=== PATIENT | male | born 1945 ===

== ENCOUNTER 2017-01-30 17:01 | Inpatient (IN) | payer MEDICARE, MEDICAID ==
[2017-01-30] MEDS ORDERED: Iohexol 240 (50 ml) PO ONE (17:48)
[2017-01-30 18:40] LABS: BASO # 0.2 K/uL (0.0-0.2); BASO % 0.8 % (0.0-2.0); EOS # 0.1 K/uL (0.0-0.7); EOS % 0.4 % (0.0-4.0); HEMATOCRIT 41.2 % (35.0-51.0); LYMPH # 2.6 K/uL (1.0-4.3); LYMPH % 13.7 % (20.0-40.0); MEAN CELL VOLUME 90.2 fl (80.0-94.0); MEAN CORPUSCULAR HEMOGLOBIN 29.1 pg (27.0-31.0); MEAN CORPUSCULAR HGB CONC 32.3 g/dL (33.0-37.0); MEAN PLATELET VOLUME 9.4 fl (7.2-11.7); MONO # 1.6 K/uL (0.0-0.8); MONO % 8.4 % (0.0-10.0); NEUT # 14.4 K/uL (1.8-7.0); NEUT % 76.7 % (50.0-75.0); RED CELL DISTRIBUTION WIDTH 12.6 % (11.5-14.5); WHITE BLOOD COUNT 18.8 K/uL (4.8-10.8)
[2017-01-30 18:55] LABS: ALKALINE PHOSPHATASE 144 U/L (38-126); ALT/SGPT 23 U/L (21-72); AMYLASE 57 U/L (30-110); AST/SGOT 14 U/L (17-59); BILIRUBIN,TOTAL 0.7 mg/dl (0.2-1.3); BLOOD UREA NITROGEN 20 mg/dl (9-20); CALCIUM 9.3 mg/dL (8.4-10.2); CARBON DIOXIDE 26 mmol/L (22-30); CHLORIDE 100 mmol/L (98-107); GFR AFRICAN-AMERICAN > 60; GLUCOSE,RANDOM 172 mg/dL (75-110); LIPASE 43 U/L (23-300); POTASSIUM 4.8 MMOL/L (3.6-5.0); SODIUM 133 mmol/l (132-148); TOTAL PROTEIN 7.2 G/DL (6.3-8.2)
[2017-01-30] MEDS ORDERED: Iohexol 240 (50 ml) ONE (19:08)
--- NOTE | 2017-01-30 20:02 | ED PDOC ---
HPI:Nausea, Vomiting, Diarrhea <Kay Cartwright - Last Filed: 01/30/17 23:10> Chief Complaint (Provider): Nausea History Per: Patient, EMS History/Exam Limitations: no limitations Onset/Duration Of Symptoms: Hrs (today) Current Symptoms Are (Timing): Still Present Have you had recent travel within the past 21 days to any of the following countries: [place], [place], [place] or [place]?: No Associated Symptoms: denies: Fever, Chills, Vomiting, Diarrhea, Chest Pain (no shortness of breath) Additional Complaint(s): Jesse Robles is a 71 year old male, with a past medical history of HTN, hypercholesterolemia, type II diabetes, dementia and b/l BKA, who presents to the ED on 01/30/17 for the evaluation of moderate nausea that he has experienced over the course of the day today. Denies any additional complaints, though patient is a notably poor historian. PMD: none <Yaya Moura - Last Filed: 01/31/17 13:30> Time Seen by Provider: 01/30/17 17:33 Chief Complaint (Nursing): Lower Extremity Problem/Injury Past Medical History Vital Signs: Last Vital Signs Temp 98.3 F 01/30/17 17:07 Pulse 78 01/30/17 17:07 Resp 20 01/30/17 17:07 BP 155/48 H 01/30/17 17:07 Pulse Ox 98 01/30/17 23:09 <Kay Cartwright - Last Filed: 01/30/17 23:10> Reviewed: Historical Data, Nursing Documentation, Vital Signs Vital Signs: Last Vital Signs Temp 98.3 F 01/30/17 17:07 Pulse 78 01/30/17 17:07 Resp 20 01/30/17 17:07 BP 155/48 H 01/30/17 17:07 Pulse Ox 98 01/30/17 17:07 - Medical History PMH: Arthritis, Dementia, Diabetes (type II), HTN, Hypercholesterolemia Denies: HIV, Chronic Kidney Disease Other PMH: glaucoma (right eye) - Surgical History Other surgeries: b/l BKA - Family History Family History: States: Unknown Family Hx <Yaya Moura - Last Filed: 01/31/17 13:30> - Home Medications Home Medications: Ambulatory Orders Medication Instructions Recorded Losartan/Hydrochlorothiazide 1 tab PO DAILY PRN 11/03/15 [Losartan-Hctz 50-12.5 mg Tab] Oxycodone HCl/Acetaminophen 1 tab PO Q6 PRN 11/03/15 [Percocet 5-325 mg Tablet] ALPRAZolam [Xanax] 0.25 mg PO TID PRN 11/14/16 Azelastine HCl 1 spray KAYKAY BID PRN 11/14/16 Fluocinonide 0.05% Cream [Lidex 1 appl TOP BID 11/14/16 0.05% Cream] Insulin Lispro [humALOG] 2 - 8 unit SC ACTID 11/14/16 Memantine [Namenda] 5 mg PO BID 11/14/16 Pravastatin Sodium [Pravachol] 40 mg PO HS 11/14/16 - Allergies Allergies/Adverse Reactions: Allergies Allergy/AdvReac Type Severity Reaction Status Date / Time No Known Allergies Allergy Verified 01/30/17 17:06 Review of Systems Constitutional: Negative for: Fever Gastrointestinal: Positive for: Nausea. Negative for: Vomiting, Abdominal Pain , Diarrhea <Yaya Moura - Last Filed: 01/31/17 13:30> Physical Exam - Reviewed Nursing Documentation Reviewed: Yes Vital Signs Reviewed: Yes - Physical Exam Appears: Positive for: Non-toxic, No Acute Distress Head Exam: Positive for: ATRAUMATIC, NORMOCEPHALIC Skin: Positive for: Normal Color, Warm, Dry Eye Exam: Negative for: Normal appearance (abnormal right eye (chronic)) Neck: Positive for: Normal, Painless ROM, Supple Cardiovascular/Chest: Positive for: Regular Rate, Rhythm, Chest Non Tender. Negative for: Murmur Respiratory: Positive for: Normal Breath Sounds. Negative for: Respiratory Distress Gastrointestinal/Abdominal: Positive for: Tenderness (winces upon palpation), Guarding (voluntary to right abdomen w/rigidity) Back: Positive for: Other (redness noted to sacrum but no evidence of ulcer) Extremity: Positive for: Other (b/l BKA) Neurologic/Psych: Positive for: Alert <Yaya Moura - Last Filed: 01/31/17 13:30> - Laboratory Results Result Diagrams: 01/30/17 18:25 01/30/17 18:25 <Kay Cartwright Last Filed: 01/30/17 23:10> - Laboratory Results Result Diagrams: 01/31/17 07:30 01/31/17 07:30 - ECG O2 Sat by Pulse Oximetry: 98 (RA) Pulse Ox Interpretation: Normal <Yaya Moura - Last Filed: 01/31/17 13:30> Medical Decision Making Medical Decision Makin:33 Initial Impression: nausea, abdominal tenderness w/rigidity and guarding Initial Plan: * EKG * CT A/P w/PO and IV contrast * CXR * Labs * Troponin I * Ammonia * Amylase * Lipase * Lactic Acid * POC * Urinalysis * Urine C&S * Zofran 4mg IVP * Reevaluation 19:57 Patient will be placed into ED Observation secondary to time-extensive workup. See Obs note for further updates. Scribe Attestation: Documented by Savi Lafleur, acting as a scribe for Yaya Moura PA-C. Provider Scribe Attestation: All medical record entries made by the Scribe were at my direction and personally dictated by me. I have reviewed the chart and agree that the record accurately reflects my personal performance of the history, physical exam, medical decision making, and the department course for this patient. I have also personally directed, reviewed, and agree with the discharge instructions and disposition. <Yaya Moura - Last Filed: 01/31/17 13:30> ED OBSERVATION Date of observation admission: 01/30/17 Time of observation admission: 19:57 - Observation admission statement Patient is being placed in observation because:: Time-extensive ED workup. - Goals of Observation Goals of observation are:: Results of ED workup. - Progress Note Progress Note: 01/30/17 20:00 Patient will be endorsed over to Kay Cartwright PA-C pending results of workup, reevaluation and final disposition. Condition fair. <Yaya Moura - Last Filed: 01/31/17 13:30> Disposition <Kay Cartwright - Last Filed: 01/30/17 23:10> - Patient ED Disposition Is Patient to be Admitted: Transfer of Care - Disposition Disposition: Transfer of Care Disposition Time: 20:00 Patient Signed Over To: Kay Cartwright Handoff Comments: pending CT scan, UA and final disposition <Yaya Moura - Last Filed: 01/31/17 13:30> - Clinical Impression Clinical Impression: Abdominal pain - Disposition Condition: STABLE
--- NOTE | 2017-01-30 20:14 | ED PDOC ---
- Laboratory Results Result Diagrams: 01/30/17 18:25 01/30/17 18:25 - ECG O2 Sat by Pulse Oximetry: 98 Medical Decision Making Medical Decision Making: Case endorsed to insurance underwriter sales from [employer] Moura at 20:00 pending diagnostic review and re-eval. Pt scheduled for CT at 21:30 HPI reviewed: Jesse Robles is a 71 year old male, with a past medical history of HTN, hypercholesterolemia, type II diabetes, dementia and b/l BKA, who presents to the ED on 01/30/17 for the evaluation of moderate nausea that he has experienced over the course of the day today. Denies any additional complaints, though patient is a notably poor historian. PMD: none clinical team manager: BP: 114/60 P 88 POX:97% on RA WBC 18.8 23:00 CT results pending. Pt asleep in bed in NAD. CT resulted: FINDINGS: Bilateral scarring/atelectasis. The liver, spleen and left adrenal gland demonstrate no acute abnormalities. Question subcentimeter hypoattenuating lesion in the tail of pancreas, unchanged in appearance from prior study. 14 mm right adrenal gland nodule again noted. No hydronephrosis. Pelvic right kidney. Hypoattenuating lesions in the kidneys. The largest on the left measures 14 mm. Nonspecific perinephric stranding. Notable atherosclerosis. Small hiatal hernia. The small and large bowel as visualized demonstrate no evidence of obstruction or clear focus of inflammation. Colonic diverticula. The left colon is collapsed , limiting its evaluation. Areas of apparent bowel wall prominence appear to be due to inadequate distention. Some retained fecal material in the colon. Degenerative changes. Vertebral body height loss involving superior endplate of T9. IMPRESSION: No definitive acute CT finding to correspond to reported history. Urine specimen not produced thus far. Cath ordered. 23:30: Pt complaining of pain, Pt's at bedside and reports Pt usually takes percocet PO before bed for chronic leg pain 1 tab ordered UA resulted (+) for UTI. IV Rocephin ordered. Ed MD, Dr. Nuñez, aware. Pts reports that his PMD is new, out of [place]. Pt admitted to Dr. Antunez's service. Disposition - Clinical Impression Clinical Impression: UTI (urinary tract infection), SIRS (systemic inflammatory response syndrome) - POA Present On Arrival: None - Disposition Disposition: Admitted as In-Patient Disposition Time: 23:55 Condition: STABLE
[2017-01-30] MEDS ORDERED: Sodium Chloride 0.9% 50 ML IV ONE (22:25)
[2017-01-30] MEDS ORDERED: Iohexol 300 100 ML IJ ONE (22:25)
--- NOTE | 2017-01-30 23:17 | CT ---
EXAM: CT Abdomen and Pelvis With Intravenous Contrast. CLINICAL HISTORY: 71 years old, male; Pain; Abdominal pain; Generalized; Additional info: Abdominal pain, right TECHNIQUE: Axial computed tomography images of the abdomen and pelvis with intravenous contrast. This CT exam was performed using one or more of the following dose reduction techniques: automated exposure control, adjustment of the mA and/or kV according to patient size, and/or use of iterative reconstruction technique. Coronal and sagittal reformatted images were created and reviewed. CONTRAST: 90 mL of [id number] administered intravenously. COMPARISON: CT - ABD PELVIS PO IV CONTRAST 11/03/2015 10:06:59 PM FINDINGS: Bilateral scarring/atelectasis. The liver, spleen and left adrenal gland demonstrate no acute abnormalities. Question subcentimeter hypoattenuating lesion in the tail of pancreas, unchanged in appearance from prior study. 14 mm right adrenal gland nodule again noted. No hydronephrosis. Pelvic right kidney. Hypoattenuating lesions in the kidneys. The largest on the left measures 14 mm. Nonspecific perinephric stranding. Notable atherosclerosis. Small hiatal hernia. The small and large bowel as visualized demonstrate no evidence of obstruction or clear focus of inflammation. Colonic diverticula. The left colon is collapsed, limiting its evaluation. Areas of apparent bowel wall prominence appear to be due to inadequate distention. Some retained fecal material in the colon. Degenerative changes. Vertebral body height loss involving superior endplate of T9. IMPRESSION: No definitive acute CT finding to correspond to reported history. Please see additional details/findings as above. Correlate clinically. Followup as warranted.
[2017-01-30] MEDS ORDERED: Oxycodone/Acetaminophen 5/325 mg Tab PO STA (23:29)
[2017-01-30 23:40] LABS: RBC URINE 23 /hpf (0-3); URINE BACTERIA OCC (<OCC); URINE BILIRUBIN NEGATIVE (NEGATIVE); URINE BLOOD SMALL (NEGATIVE); URINE COLOR YELLOW (YELLOW); URINE GLUCOSE (UA) NEG (Normal); URINE KETONE NEGATIVE (NEGATIVE); URINE LEUKOCYTE ESTERASE LARGE Leu/uL (Negative); URINE PROTEIN 30 mg/dL (NEGATIVE); URINE UROBILINOGEN 0.2-1.0 mg/dL (0.2-1.0); WBC CLUMPS FEW /hpf; WBC URINE 649 /hpf (0-5)
[2017-01-30] MEDS ORDERED: cefTRIAXone (Rocephin) 1 gm Inj ONE (23:49)
[2017-01-30] MEDS ORDERED: Oxycodone/Acetaminophen 5/325 mg Tab ONE (23:49)
[2017-01-31] MEDS ORDERED: Sodium Chloride 0.9% 1,000 ML IV STA (01:04)
[2017-01-31] MEDS ORDERED: Glucagon Recombinant 1 mg Inj IM PRN (01:05)
[2017-01-31] MEDS ORDERED: Dextrose 50% SYRINGE Inj (50 ml) IV PRN (01:05)
[2017-01-31] MEDS: Insulin Regular 100 units/ml SC SCH ×4 (07:10→21:36)
[2017-01-31 07:58] LABS: ALKALINE PHOSPHATASE 138 U/L (38-126); ALT/SGPT 25 U/L (21-72); AST/SGOT 14 U/L (17-59); BILIRUBIN,TOTAL 0.7 mg/dl (0.2-1.3); BLOOD UREA NITROGEN 16 mg/dl (9-20); CALCIUM 9.1 mg/dL (8.4-10.2); CARBON DIOXIDE 26 mmol/L (22-30); CHLORIDE 101 mmol/L (98-107); CHOLESTEROL 139 mg/dL (0-199); GFR AFRICAN-AMERICAN > 60; GLUCOSE,RANDOM 112 mg/dL (75-110); POTASSIUM 4.3 MMOL/L (3.6-5.0); SODIUM 135 mmol/l (132-148); TOTAL PROTEIN 7.1 G/DL (6.3-8.2)
[2017-01-31 08:01] LABS: HEMATOCRIT 39.1 % (35.0-51.0); MEAN CELL VOLUME 91.1 fl (80.0-94.0); MEAN CORPUSCULAR HEMOGLOBIN 29.6 pg (27.0-31.0); MEAN CORPUSCULAR HGB CONC 32.5 g/dL (33.0-37.0); RED CELL DISTRIBUTION WIDTH 12.6 % (11.5-14.5); WHITE BLOOD COUNT 16.5 K/uL (4.8-10.8)
[2017-01-31 08:17] LABS: T4 8.43 ug/dl (5.5-11.0)
[2017-01-31] MEDS: Oxycodone/Acetaminophen 5/325 mg Tab PO PRN (08:42)
[2017-01-31 08:47] LABS: PARTIAL THROMBOPLASTIN TIME 31.1 SECONDS (23.3-32.5)
[2017-01-31] MEDS ORDERED: AZELASTINE HCL NAS PRN (09:00)
[2017-01-31] MEDS ORDERED: Enoxaparin 40 mg Syringe SC SCH (09:00)
--- NOTE | 2017-01-31 10:17 | HP ---
CHIEF COMPLAINT: Feeling nauseous. HISTORY OF PRESENT ILLNESS: This is a 71-year-old male, known case of hypertension, elevated cholest [place], peripheral vascular disease leading to bilateral above-knee amputation, diabetes, dementia, was feeling nauseous the whole day so the patient was brought to Emergency Room where the patient was fo und to have urinary tract infection and was admitted for further management. The patient is not a go od historian due to his general medical condition. REVIEW OF SYSTEMS: He does not reliably available from this patient. PAST MEDICAL HISTORY: Significant for diabetes, hypertension, advanced dementia, elevated cholestero l, status post bilateral amputation. PAST SURGICAL HISTORY: Positive for bilateral amputation. PERSONAL HISTORY: The patient is currently a nonsmoker, nondrinker, no substance abuse. MEDICATIONS: The patient is on multiple medications, which includes losartan, hydrochlorothiazide, P ercocet, Xanax, hydralazine, insulin, memantine and ____. ALLERGIES: The patient is not allergic to any medication. FAMILY HISTORY: Noncontributory. PHYSICAL EXAMINATION: GENERAL: Well-built, well-nourished demented elderly male in no acute distress. VITAL SIGNS: Temperature 98.4, pulse 67, respiration 19, blood pressure 142/67, saturation 94%. HEENT: Pupils reacting to light. No nystagmus. Normocephalic, atraumatic skull. NECK: No JVD, no thyromegaly, no lymphadenopathy. HEART: S1, S2, irregular, irregular. No significant murmur, gallop or rub is heard. LUNGS: Shows good bilateral air entry. No rales or rhonchi. ABDOMEN: Soft, nontender, no organomegaly, no fluid. Bowel sounds are plus. EXTREMITIES: The patient is status post bilateral above knee amputation. No sign of acute complicat ion. CENTRAL NERVOUS SYSTEM: The patient is demented, moves all extremities. Total SWATCH FOLDER exam is not possi ble due to patient's general medical condition. DIAGNOSTIC DATA: Available diagnostic data reviewed. WBC 18.8, hemoglobin 13.3, hematocrit 41.2, pl atelets 245. Sodium 133, potassium 4.8, chloride 100, bicarbonate 26. Accu-Cheks are 163, 104, 172. SMA-12 is unremarkable. Urinalysis shows large, leukocyte esterase, multiple WBC and bacteria. Ch est x-ray is clear. EKG shows atrial fibrillation with controlled ventricular rate. ADMITTING IMPRESSION: Urinary tract infection, atrial fibrillation with controlled ventricular rate, advanced dementia, hypertension, type 2 diabetes with hyperglycemia, elevated cholesterol, periphera l vascular disease, status post bilateral amputation. PLAN: As ordered. Case and plan discussed with patient and the patient's family at bedside at [facility]. Jean Pierre Antunez MD cc: [id number] TT: 01/31/2017 10:15:57 jn
[2017-01-31 10:26] LABS: THYROID STIMULATING HORMONE 0.97 mIU/ML (0.46-4.68)
[2017-01-31] MEDS: HCTZ/Losartan 12.5/50 Tab PO SCH (10:50)
--- NOTE | 2017-01-31 10:52 | RAD ---
PROCEDURE: CHEST RADIOGRAPH, 1 VIEW HISTORY: abdominal pain COMPARISON: 11/14/2016 FINDINGS: LUNGS: Clear. Trachea is midline. PLEURA: No pneumothorax or pleural fluid seen. CARDIOVASCULAR: Normal. There is stable mild atherosclerotic change of the aorta with uncoiling. No aneurysmal dilatation of the aorta is suspected. OSSEOUS STRUCTURES: No significant abnormalities. VISUALIZED UPPER ABDOMEN: Normal. OTHER FINDINGS: None. IMPRESSION: No active disease.
[2017-01-31] MEDS: Enoxaparin 80 mg Syringe SC SCH ×2 (12:14→20:13)
--- NOTE | 2017-01-31 13:45 | CP.PCM.CON ---
History of Present Illness - History of Present Illness History of Present Illness: I was asked to see patient by Dr. Antunez. Patient is a 71 year old male with a history of HTN, PAD (s/p L BKA, R AKA), who presents with fatigue lethargy. Patient was noted to have recurrent UTI. The history is obtained from the patient's as the patient is a poor historian. He was noted to have itrregularity on the EKG. There is no previous cardiac history. Review of Systems - Review of Systems Systems not reviewed;Unavailable: Altered Mental Status Past Patient History - Past Medical History & Family History Past Medical History?: Yes - Past Social History Smoking Status: Current Some Days Smoker - CARDIAC Hx Hypercholesterolemia: Yes Hx Hypertension: Yes - PULMONARY Hx Respiratory Disorders: No - NEUROLOGICAL Hx Dementia: Yes - HEENT Hx HEENT Problems: Yes - RENAL Hx Chronic Kidney Disease: No - ENDOCRINE/METABOLIC Hx Endocrine Disorders: Yes - HEMATOLOGICAL/ONCOLOGICAL Hx Human Immunodeficiency Virus (HIV): No - INTEGUMENTARY Hx Dermatological Problems: No - MUSCULOSKELETAL/RHEUMATOLOGICAL Hx Arthritis: Yes - GASTROINTESTINAL Hx Gastrointestinal Disorders: No - GENITOURINARY/GYNECOLOGICAL Hx Genitourinary Disorders: No - PSYCHIATRIC Hx Psychophysiologic Disorder: No - SURGICAL HISTORY Hx Surgeries: Yes Hx Amputation: Yes (Left BKA, Right AKA) - ANESTHESIA Hx Anesthesia: Yes Hx Anesthesia Reactions: No Hx Malignant Hyperthermia: No Meds Allergies/Adverse Reactions: Allergies Allergy/AdvReac Type Severity Reaction Status Date / Time No Known Allergies Allergy Verified 01/30/17 17:06 - Medications Medications: Current Medications Alprazolam (Xanax) 0.25 mg PO TID PRN PRN Reason: Anxiety Stop: 02/07/17 06:55 Dextrose (Glutose 15) 0 gm PO ONCE PRN; Protocol PRN Reason: Hypoglycemia Protocol Dextrose (Dextrose 50% Inj) 0 ml IV STAT PRN; Protocol PRN Reason: Hyglycemia Protocol Enoxaparin Sodium (Lovenox) 70 mg SC BID@0900,2100 [facility] PRN Reason: Protocol Last Admin: 01/31/17 12:14 Dose: 70 mg Fluocinonide (Lidex 0.05% Cream) 1 applic TOP BID [facility] Last Admin: 01/31/17 08:39 Dose: 1 applic Glucagon (Glucagen Diagnostic Kit) 0 mg IM STAT PRN; Protocol PRN Reason: Hypoglycemia Protocol HCTZ/Losartan Potassium (Hyzaar 12.5 Mg-50 Mg) 1 tab PO DAILY [facility] Last Admin: 01/31/17 10:50 Dose: 1 tab Home Med (Azelastine Hcl [Azelastine Hcl]) 1 spray KAYKAY BID PRN PRN Reason: Allergy symptoms Ceftriaxone Sodium 1 gm/ (Sodium Chloride) 100 mls @ 100 mls/hr IVPB Q12 [facility] Last Admin: 01/31/17 08:43 Dose: 100 mls/hr Insulin Human Regular (Humulin R) 0 units SC ACHS [facility] PRN Reason: Protocol Last Admin: 01/31/17 12:14 Dose: 2 units Memantine (Namenda) 5 mg PO BID [facility] Last Admin: 01/31/17 10:50 Dose: 5 mg Ondansetron HCl (Zofran Inj) 4 mg IVP Q8 PRN PRN Reason: Nausea/Vomiting Oxycodone/Acetaminophen (Percocet 5/325 Mg Tab) 1 tab PO Q6 PRN PRN Reason: Pain, severe (8-10) Stop: 02/03/17 06:55 Last Admin: 01/31/17 08:42 Dose: 1 tab Pravastatin Sodium (Pravachol) 40 mg PO [facility] Physical Exam - Constitutional Appears: Chronically Ill - Head Exam Head Exam: NORMAL INSPECTION - Eye Exam Eye Exam: Normal appearance - ENT Exam ENT Exam: Mucous Membranes Moist - Neck Exam Neck exam: Positive for: Full Rom - Respiratory Exam Respiratory Exam: Decreased Breath Sounds - Cardiovascular Exam Cardiovascular Exam: REGULAR RHYTHM - GI/Abdominal Exam GI & Abdominal Exam: Normal Bowel Sounds - Rectal Exam Rectal Exam: Deferred - Extremities Exam Additional comments: bilateral amputations - Back Exam Back exam: NORMAL INSPECTION - Neurological Exam Neurological exam: Alert, Oriented x3 - Psychiatric Exam Psychiatric exam: Normal Affect - Skin Skin Exam: Normal Color Results - Vital Signs Recent Vital Signs: Last Vital Signs Temp 98.6 F 01/31/17 08:45 Pulse 82 01/31/17 08:45 Resp 20 01/31/17 08:45 BP 159/48 H 01/31/17 08:45 Pulse Ox 98 01/31/17 13:30 - Labs Result Diagrams: 02/01/17 05:30 02/01/17 05:30 Labs: Laboratory Results - last 24 hr 01/31/17 01/31/1717 06:07 07:30 10:45 WBC 16.5 H RBC 4.29 L Hgb 12.7 Hct 39.1 MCV 91.1 MCH 29.6 MCHC 32.5 L RDW 12.6 Plt Count 214 PT 11.0 INR 1.06 APTT 31.1 Sodium 135 Potassium 4.3 Chloride 101 Carbon Dioxide 26 Anion Gap 12 BUN 16 Creatinine 0.6 L Est GFR ( Amer) > 60 Est GFR (Non-Af Amer) > 60 POC Glucose (mg/dL) 104 Random Glucose 112 H Calcium 9.1 Total Bilirubin 0.7 AST 14 L ALT 25 Alkaline Phosphatase 138 H Troponin I < 0.0120 Total Protein 7.1 Albumin 3.6 Globulin 3.5 Albumin/Globulin Ratio 1.0 Triglycerides 148 Cholesterol 139 LDL Cholesterol Direct 74 HDL Cholesterol 32 Vitamin B12 361 Thyroxine (T4) 8.43 Total T3 0.650 L TSH 3rd Generation 0.97 01/31/17 11:09 WBC RBC Hgb Hct MCV MCH MCHC RDW Plt Count PT INR APTT Sodium Potassium Chloride Carbon Dioxide Anion Gap BUN Creatinine Est GFR ( Amer) Est GFR (Non-Af Amer) POC Glucose (mg/dL) 168 H Random Glucose Calcium Total Bilirubin AST ALT Alkaline Phosphatase Troponin I Total Protein Albumin Globulin Albumin/Globulin Ratio Triglycerides Cholesterol LDL Cholesterol Direct HDL Cholesterol Vitamin B12 Thyroxine (T4) Total T3 TSH 3rd Generation - EKG Data EKG Interpreted by: Myself Assessment & Plan (1) Mobitz type II atrioventricular block Assessment and Plan: hemodynamically stable. will review echocardiogram Status: Acute (2) HTN (hypertension) Assessment and Plan: blood pressure is controlled Status: Chronic Priority: High
[2017-01-31] MEDS: Pravastatin Sodium 40 MG TAB PO SCH (21:37)
[2017-02-01] MEDS: Oxycodone/Acetaminophen 5/325 mg Tab PO PRN (06:44)
[2017-02-01] MEDS: Insulin Regular 100 units/ml SC SCH ×4 (07:12→21:12)
--- NOTE | 2017-02-01 07:37 | CARD ---
APPROVED REPORT EXAM: Two-dimensional and M-mode echocardiogram with Doppler and color Doppler. Other Information Quality : AverageRhythm : Atrial Fibrillation Technically limited study due to Limited EWcho Window INDICATION Atrial Fibrillation 2D DIMENSIONS IVSd1.30 (0.7-1.1cm)LVDd3.77 (3.9-5.9cm) LVOT Diameter2.92 (1.8-2.4cm)PWd0.76 (0.7-1.1cm) IVSs1.38 (0.8-1.2cm)LVDs2.55 (2.5-4.0cm) FS (%) 32.3 %PWs1.58 (0.8-1.2cm) M-Mode DIMENSIONS Left Atrium (MM)3.62 (2.5-4.0cm)Aortic Root3.26 (2.2-3.7cm) Aortic Cusp Exc.2.03 (1.5-2.0cm) Mitral Valve E/A ratio0.0 TDI E/Lateral E'0.0E/Medial E'0.0 LEFT VENTRICLE The left ventricle is normal size. There is normal left ventricular wall thickness. The left ventricular function is normal. The left ventricular ejection fraction is 55% There is normal LV segmental wall motion. Not determined due to afib No left ventricle thrombus noted on this study. There is no ventricular septal defect visualized. There is no left ventricular aneurysm. There is no mass noted in the left ventricle. RIGHT VENTRICLE The right ventricle is normal size. There is normal right ventricular wall thickness. The right ventricular systolic function is normal. ATRIA The left atrium size is normal. The right atrium size is normal. The interatrial septum is intact with no evidence for an atrial septal defect. AORTIC VALVE The aortic valve is moderately sclerotic. No aortic regurgitation is present. There is no aortic valvular stenosis. There is no aortic valvular vegetation. MITRAL VALVE The mitral valve is normal in structure and function. There is no evidence of mitral valve prolapse. There is no mitral valve stenosis. There is no mitral valve regurgitation noted. TRICUSPID VALVE The tricuspid valve is normal in structure and function. There is no tricuspid valve regurgitation noted. There is no tricuspid valve prolapse or vegetation. There is no tricuspid valve stenosis. PULMONIC VALVE The pulmonary valve is normal in structure and function. There is no pulmonic valvular regurgitation. There is no pulmonic valvular stenosis. GREAT VESSELS The aortic root is normal in size. The ascending aorta is normal in size. The IVC is normal in size and collapses >50% with inspiration. PERICARDIAL EFFUSION The pericardium appears normal. There is no pleural effusion. <Conclusion> Normal LV Systolic Function Aortic Valve Sclerosis
[2017-02-01 07:57] LABS: MEAN CELL VOLUME 90.6 fl (80.0-94.0); MEAN CORPUSCULAR HGB CONC 33.1 g/dL (33.0-37.0); RED CELL DISTRIBUTION WIDTH 12.4 % (11.5-14.5); WHITE BLOOD COUNT 12.4 K/uL (4.8-10.8)
[2017-02-01 08:17] LABS: ALKALINE PHOSPHATASE 140 U/L (38-126); ALT/SGPT 24 U/L (21-72); AST/SGOT 24 U/L (17-59); BILIRUBIN,TOTAL 0.5 mg/dl (0.2-1.3); BLOOD UREA NITROGEN 14 mg/dl (9-20); CALCIUM 9.2 mg/dL (8.4-10.2); CARBON DIOXIDE 28 mmol/L (22-30); CHLORIDE 99 mmol/L (98-107); GFR AFRICAN-AMERICAN > 60; GLUCOSE,RANDOM 135 mg/dL (75-110); POTASSIUM 3.8 MMOL/L (3.6-5.0); SODIUM 134 mmol/l (132-148); TOTAL PROTEIN 6.7 G/DL (6.3-8.2)
[2017-02-01] MEDS: Enoxaparin 80 mg Syringe SC SCH ×2 (09:05→20:53)
[2017-02-01] MEDS: HCTZ/Losartan 12.5/50 Tab PO SCH (09:06)
--- NOTE | 2017-02-01 09:38 | CP.PCM.PN ---
Subjective - Date & Time of Evaluation Date of Evaluation: 02/01/17 Time of Evaluation: 09:15 - Subjective Subjective: patient has no new changes. confused. Objective - Vital Signs/Intake and Output Vital Signs (last 24 hours): Temp Pulse Resp BP Pulse Ox 98.4 F 73 20 156/66 H 97 02/01/17 08:18 02/01/17 08:18 02/01/17 08:18 02/01/17 08:18 02/01/17 08:18 - Medications Medications: Current Medications Alprazolam (Xanax) 0.25 mg PO TID PRN PRN Reason: Anxiety Stop: 02/07/17 06:55 Last Admin: 02/01/17 09:04 Dose: 0.25 mg Dextrose (Glutose 15) 0 gm PO ONCE PRN; Protocol PRN Reason: Hypoglycemia Protocol Dextrose (Dextrose 50% Inj) 0 ml IV STAT PRN; Protocol PRN Reason: Hyglycemia Protocol Enoxaparin Sodium (Lovenox) 70 mg SC BID@0900,2100 [facility] PRN Reason: Protocol Last Admin: 02/01/17 09:05 Dose: 70 mg Fluocinonide (Lidex 0.05% Cream) 1 applic TOP BID [facility] Last Admin: 02/01/17 09:05 Dose: 1 applic Glucagon (Glucagen Diagnostic Kit) 0 mg IM STAT PRN; Protocol PRN Reason: Hypoglycemia Protocol HCTZ/Losartan Potassium (Hyzaar 12.5 Mg-50 Mg) 1 tab PO DAILY [facility] Last Admin: 02/01/17 09:06 Dose: 1 tab Home Med (Azelastine Hcl [Azelastine Hcl]) 1 spray KAYKAY BID PRN PRN Reason: Allergy symptoms Ceftriaxone Sodium 1 gm/ (Sodium Chloride) 100 mls @ 100 mls/hr IVPB Q12 [facility] Last Admin: 02/01/17 09:04 Dose: 100 mls/hr Insulin Human Regular (Humulin R) 0 units SC ACHS [facility] PRN Reason: Protocol Last Admin: 02/01/17 07:12 Dose: Not Given Memantine (Namenda) 5 mg PO BID [facility] Last Admin: 02/01/17 09:05 Dose: 5 mg Ondansetron HCl (Zofran Inj) 4 mg IVP Q8 PRN PRN Reason: Nausea/Vomiting Oxycodone/Acetaminophen (Percocet 5/325 Mg Tab) 1 tab PO Q6 PRN PRN Reason: Pain, severe (8-10) Stop: 02/03/17 06:55 Last Admin: 02/01/17 06:44 Dose: 1 tab Pravastatin Sodium (Pravachol) 40 mg PO HS [facility] Last Admin: 01/31/17 21:37 Dose: 40 mg - Labs Labs: 02/01/17 05:30 02/01/17 05:30 PT 11.0 SECONDS (9.6-11.2) 01/31/17 07:30 INR 1.06 (0.92-1.08) 01/31/17 07:30 APTT 31.1 SECONDS (23.3-32.5) 01/31/17 07:30 - Constitutional Appears: Non-toxic - Head Exam Head Exam: NORMAL INSPECTION - Eye Exam Eye Exam: Normal appearance - ENT Exam ENT Exam: Mucous Membranes Moist - Neck Exam Neck Exam: Full ROM - Respiratory Exam Respiratory Exam: NORMAL BREATHING PATTERN - Cardiovascular Exam Cardiovascular Exam: REGULAR RHYTHM - GI/Abdominal Exam GI & Abdominal Exam: Normal Bowel Sounds - Rectal Exam Rectal Exam: Deferred - Extremities Exam Additional comments: amputation - Neurological Exam Neurological Exam: Awake - Psychiatric Exam Psychiatric exam: Normal Affect - Skin Skin Exam: Normal Color Assessment and Plan (1) Mobitz type II atrioventricular block Assessment & Plan: stable . I reviewed the echocardiogram. Normal left ventricular function. Status: Acute (2) HTN (hypertension) Assessment & Plan: blood pressure is controlled. Status: Chronic
--- NOTE | 2017-02-01 09:44 | PN ---
DATE: 02/01/2017 The patient is seen and examined. Interim events noted. Consults noted and appreciated. Initial ca rdiology evaluation noted and appreciated. The patient has consult pending. The patient is not able to provide informative history or review of systems. The patient is confused. PHYSICAL EXAMINATION: GENERAL: The patient is in no acute distress. VITAL SIGNS: Stable. HEART: S1, S2 normal, regular. LUNGS: Good bilateral air entry. ABDOMEN: Soft, nontender. EXTREMITIES: No calf swelling, no tenderness, no acute ischemia. The patient is status post bilater al amputation. CENTRAL NERVOUS SYSTEM: Essentially unchanged. DIAGNOSTIC DATA: Available diagnostic data reviewed. Overall, the patient's general medical condition is stable. PLAN: As ordered. Jean Pierre Antunez MD cc: [phone] TT: 02/01/2017 09:43:29 Confirmation # [id number] Dictation # [id number] jn
[2017-02-01] MEDS: Pravastatin Sodium 40 MG TAB PO SCH (21:11)
[2017-02-02] MEDS: Insulin Regular 100 units/ml SC SCH ×4 (06:48→23:18)
[2017-02-02 07:08] LABS: HEMATOCRIT 38.3 % (35.0-51.0); MEAN CORPUSCULAR HEMOGLOBIN 29.8 pg (27.0-31.0); MEAN CORPUSCULAR HGB CONC 32.7 g/dL (33.0-37.0); RED CELL DISTRIBUTION WIDTH 12.5 % (11.5-14.5); WHITE BLOOD COUNT 10.7 K/uL (4.8-10.8)
[2017-02-02 07:32] LABS: ALKALINE PHOSPHATASE 143 U/L (38-126); ALT/SGPT 26 U/L (21-72); AST/SGOT 23 U/L (17-59); BILIRUBIN,TOTAL 0.4 mg/dl (0.2-1.3); BLOOD UREA NITROGEN 12 mg/dl (9-20); CALCIUM 9.1 mg/dL (8.4-10.2); CARBON DIOXIDE 29 mmol/L (22-30); CHLORIDE 99 mmol/L (98-107); GFR AFRICAN-AMERICAN > 60; GLUCOSE,RANDOM 117 mg/dL (75-110); POTASSIUM 3.8 MMOL/L (3.6-5.0); SODIUM 142 mmol/l (132-148); TOTAL PROTEIN 6.8 G/DL (6.3-8.2)
[2017-02-02 08:21] VITALS: RESP 20
[2017-02-02] MEDS: HCTZ/Losartan 12.5/50 Tab PO SCH (09:01)
[2017-02-02] MEDS: Enoxaparin 80 mg Syringe SC SCH ×2 (09:01→22:12)
--- NOTE | 2017-02-02 10:06 | CARD ---
APPROVED REPORT EKG Measurement Heart [id number] P46 [id number] <Conclusion> Sinus rhythm with 2nd degree AV block (Mobitz I) Left axis deviation Nonspecific ST and T wave abnormality Abnormal ECG
--- NOTE | 2017-02-02 10:40 | PN ---
DATE: 02/02/2017 The patient seen and examined. Interim events noted. Consults noted, appreciated. The patient earl ins on regular medical floor. The patient is not a good historian due to advanced dementia, but maria de jesus es any specific complaint. No chest pain, no shortness of breath. PHYSICAL EXAMINATION: GENERAL: The patient is in no acute distress. VITAL SIGNS: Stable. HEART: S1, S2 normal, regular. LUNGS: Good bilateral air exchange. ABDOMEN: Soft, nontender. EXTREMITIES: No edema, no calf swelling, no tenderness, no acute ischemia. CENTRAL NERVOUS SYSTEM: Essentially unchanged. DIAGNOSTIC DATA: Available reviewed. Urine culture is positive. Overall, patient is slowly improving. Cardiology followup and intervention noted and appreciated. PLAN: As ordered. Jean Pierre Antunez MD cc: [phone] TT: 02/02/2017 10:39:54 Confirmation # [id number] Dictation # [id number] en
--- NOTE | 2017-02-02 11:04 | PQF GENQUE ---
Dr. Antunez, SIRS ruled in or ruled out? -The diagnosis: SIRS is listed in the ER MD documentation and as an admitting diagnosis in the physician order for inpatient admission: -current diagnosis of UTI -urine cult; e-coli -WBC:18.8->16.5->12.4->10.7 -pulse and respiratory rate: within normal range This form is a permanent part of the medical record Clarification of your documentation is requested to better reflect the severity of illness and intensity of treatment of your patient. Indicators present [] Specify: [] [] Specify: [] [] Specify: [] [] Specify: [] Location in the medical record that reflects the above clinical findings: [] Treatment Provided: [] PHYSICIAN'S RESPONSE Based on your medical judgment of the clinical indicators outlined above please clarify the following: [] Practitioner response [] If unable to determine, please check the box, sign and date. Present On Admission (POA) Indicator: [] Present at the time of admission [] Not present at the time of admission [] Clinically Undetermined In responding to this query, please exercise your independent professional judgment. The fact that a question is asked does not imply that any particular answer is desired or expected. Thank you for your clarification on this documentation. If you have any questions please call. * Thank you, Ludy Condon RN BSN ext. #[phone] MTDD
--- NOTE | 2017-02-02 11:05 | PQF GENQUE ---
Dr. Antunez, (1)In agreement with pressure ulcers of sacrum, left buttock, and left knee?: documented in the nurses notes (2) sacrum and left buttock ulcer: POA? -ER MD: POA:None -01/31:nursing admission assessment; medial sacrum and left buttock :decubitus -02/01: nursing pressure ulcer assessment: left knee: intact skin: non- blanchable redness;medial sacrum: partial thickness loss of dermis and left lower buttocks: partial thickness -Wound nurse consult pending This form is a permanent part of the medical record Clarification of your documentation is requested to better reflect the severity of illness and intensity of treatment of your patient. Indicators present [] Specify: [] [] Specify: [] [] Specify: [] [] Specify: [] Location in the medical record that reflects the above clinical findings: [] Treatment Provided: [] PHYSICIAN'S RESPONSE Based on your medical judgment of the clinical indicators outlined above please clarify the following: [] Practitioner response [] If unable to determine, please check the box, sign and date. Present On Admission (POA) Indicator: [] Present at the time of admission [] Not present at the time of admission [] Clinically Undetermined In responding to this query, please exercise your independent professional judgment. The fact that a question is asked does not imply that any particular answer is desired or expected. Thank you for your clarification on this documentation. If you have any questions please call. * Thank you, Ludy Condon RN BSN ext. #[phone] MTDD
[2017-02-02] MEDS: Meropenem 1 GM in Sodium Chloride 0.9% 100 ML IVPB SCH ×2 (13:19→21:50)
[2017-02-02] MEDS: Oxycodone/Acetaminophen 5/325 mg Tab PO PRN (13:29)
--- NOTE | 2017-02-02 18:09 | CP.PCM.PN ---
Subjective - Date & Time of Evaluation Date of Evaluation: 02/02/17 Time of Evaluation: 17:45 - Subjective Subjective: patient has no complaints. Objective - Vital Signs/Intake and Output Vital Signs (last 24 hours): Temp Pulse Resp BP Pulse Ox 98.1 F 78 20 145/55 L 100 02/02/17 08:21 02/02/17 08:21 02/02/17 08:21 02/02/17 08:21 02/02/17 08:21 - Medications Medications: Current Medications Alprazolam (Xanax) 0.25 mg PO TID PRN PRN Reason: Anxiety Stop: 02/07/17 06:55 Last Admin: 02/02/17 01:37 Dose: 0.25 mg Dextrose (Glutose 15) 0 gm PO ONCE PRN; Protocol PRN Reason: Hypoglycemia Protocol Dextrose (Dextrose 50% Inj) 0 ml IV STAT PRN; Protocol PRN Reason: Hyglycemia Protocol Enoxaparin Sodium (Lovenox) 70 mg SC BID@0900,2100 [facility] PRN Reason: Protocol Last Admin: 02/02/17 09:01 Dose: 70 mg Fluocinonide (Lidex 0.05% Cream) 1 applic TOP BID [facility] Last Admin: 02/02/17 17:52 Dose: 1 applic Glucagon (Glucagen Diagnostic Kit) 0 mg IM STAT PRN; Protocol PRN Reason: Hypoglycemia Protocol HCTZ/Losartan Potassium (Hyzaar 12.5 Mg-50 Mg) 1 tab PO DAILY [facility] Last Admin: 02/02/17 09:01 Dose: 1 tab Home Med (Azelastine Hcl [Azelastine Hcl]) 1 spray KAYKAY BID PRN PRN Reason: Allergy symptoms Last Admin: 02/01/17 16:14 Dose: 1 spray Meropenem 1 gm/ Sodium (Chloride) 100 mls @ 100 mls/hr IVPB Q8 [facility] Last Admin: 02/02/17 13:19 Dose: 100 mls/hr Insulin Human Regular (Humulin R) 0 units SC ACHS [facility] PRN Reason: Protocol Last Admin: 02/02/17 17:50 Dose: Not Given Memantine (Namenda) 5 mg PO BID [facility] Last Admin: 02/02/17 17:52 Dose: 5 mg Ondansetron HCl (Zofran Inj) 4 mg IVP Q8 PRN PRN Reason: Nausea/Vomiting Oxycodone/Acetaminophen (Percocet 5/325 Mg Tab) 1 tab PO Q6 PRN PRN Reason: Pain, severe (8-10) Stop: 02/03/17 06:55 Last Admin: 02/02/17 13:29 Dose: 1 tab Pravastatin Sodium (Pravachol) 40 mg PO HS [facility] Last Admin: 02/01/17 21:11 Dose: 40 mg - Labs Labs: 02/02/17 06:35 02/02/17 06:35 PT 11.0 SECONDS (9.6-11.2) 01/31/17 07:30 INR 1.06 (0.92-1.08) 01/31/17 07:30 APTT 31.1 SECONDS (23.3-32.5) 01/31/17 07:30 - Constitutional Appears: Chronically Ill - Head Exam Head Exam: NORMAL INSPECTION - Eye Exam Eye Exam: Normal appearance - ENT Exam ENT Exam: Mucous Membranes Moist - Neck Exam Neck Exam: Full ROM - Respiratory Exam Respiratory Exam: NORMAL BREATHING PATTERN - Cardiovascular Exam Cardiovascular Exam: REGULAR RHYTHM - GI/Abdominal Exam GI & Abdominal Exam: Normal Bowel Sounds - Rectal Exam Rectal Exam: Deferred - Extremities Exam Additional comments: bilateral amputee - Back Exam Back Exam: NORMAL INSPECTION - Neurological Exam Neurological Exam: Alert - Psychiatric Exam Psychiatric exam: Normal Affect - Skin Skin Exam: Normal Color Assessment and Plan (1) Mobitz type II atrioventricular block Assessment & Plan: stable. and intermittent. no indication for pacemaker. Status: Acute (2) HTN (hypertension) Assessment & Plan: controlled. Status: Chronic (3) First degree atrioventricular block Assessment & Plan: I reviewed current EKG which reveals first degree AV block. no evidence of afib on EKG Status: Acute
[2017-02-02] MEDS: Pravastatin Sodium 40 MG TAB PO SCH (22:09)
[2017-02-03 01:34] LABS: RBC URINE 9 /hpf (0-3); URINE BACTERIA RARE (<OCC); URINE BILIRUBIN NEGATIVE (NEGATIVE); URINE BLOOD SMALL (NEGATIVE); URINE COLOR YELLOW (YELLOW); URINE GLUCOSE (UA) NEG (Normal); URINE KETONE NEGATIVE (NEGATIVE); URINE LEUKOCYTE ESTERASE LARGE Leu/uL (Negative); URINE PROTEIN 30 mg/dL (NEGATIVE); URINE UROBILINOGEN 0.2-1.0 mg/dL (0.2-1.0); WBC URINE 43 /hpf (0-5)
[2017-02-03] MEDS ORDERED: Meropenem 1 GM in Sodium Chloride 0.9% 100 ML IVPB SCH (05:00)
[2017-02-03 06:41] LABS: HEMATOCRIT 39.5 % (35.0-51.0); MEAN CELL VOLUME 90.3 fl (80.0-94.0); MEAN CORPUSCULAR HEMOGLOBIN 29.8 pg (27.0-31.0); RED CELL DISTRIBUTION WIDTH 12.5 % (11.5-14.5); WHITE BLOOD COUNT 10.6 K/uL (4.8-10.8)
[2017-02-03] MEDS: Insulin Regular 100 units/ml SC SCH ×4 (06:58→22:23)
[2017-02-03 07:06] LABS: ALB/GLOB RATIO 1.1 (1.0-2.1); ALKALINE PHOSPHATASE 170 U/L (38-126); ALT/SGPT 30 U/L (21-72); AST/SGOT 27 U/L (17-59); BILIRUBIN,TOTAL 0.4 mg/dl (0.2-1.3); BLOOD UREA NITROGEN 11 mg/dl (9-20); CALCIUM 9.5 mg/dL (8.4-10.2); CARBON DIOXIDE 28 mmol/L (22-30); CHLORIDE 100 mmol/L (98-107); GFR AFRICAN-AMERICAN > 60; GLUCOSE,RANDOM 129 mg/dL (75-110); POTASSIUM 3.6 MMOL/L (3.6-5.0); SODIUM 141 mmol/l (132-148); TOTAL PROTEIN 7.4 G/DL (6.3-8.2)
--- NOTE | 2017-02-03 07:23 | CARD ---
APPROVED REPORT EKG Measurement Heart [id number] <Conclusion> Sinus rhythm with 1st degree AV block Left axis deviation Nonspecific ST and T wave abnormality Abnormal ECG
[2017-02-03] MEDS: Enoxaparin 80 mg Syringe SC SCH (08:53)
[2017-02-03] MEDS: HCTZ/Losartan 12.5/50 Tab PO SCH (08:55)
--- NOTE | 2017-02-03 10:18 | CP.PCM.CON ---
History of Present Illness - History of Present Illness History of Present Illness: 71 year old male with a history of HTN, PAD (s/p L BKA, R AKA), who presents with fatigue lethargy. Patient was noted to have recurrent UTI. founfd to have esbl + e coli uti Review of Systems - Constitutional Constitutional: Anorexia, Fatigue - EENT Eyes: Blind Spots, Blurred Vision Ears: absent: As Per HPI, Decreased Hearing, Ear Discharge, Ear Pain, Tinnitus, Abnormal Hearing, Disequilibrium, Dizziness, Other Nose/Mouth/Throat: absent: As Per HPI, Epistaxis, Nasal Congestion, Nasal Discharge, Nasal Obstruction, Nasal Trauma, Nose Pain, Post Nasal Drip, Sinus Pain, Sinus Pressure, Bleeding Gums, Change in Voice, Dental Pain, Dry Mouth, Dysphagia, Halitosis, Hoarsness, Lip Swelling, Mouth Lesions, Mouth Pain, Odynophagia, Sore Throat, Throat Swelling, Tongue Swelling, Facial Pain, Neck Pain, Neck Mass, Other - Cardiovascular Cardiovascular: As Per HPI - Respiratory Respiratory: absent: As Per HPI, Cough, Dyspnea, Hemoptysis, Dyspnea on Exertion , Wheezing, Snoring, Stridor, Pain on Inspiration, Chest Congestion, Excessive Mucous Production, Change in Mucous Color, Pain with Coughing, Other - Gastrointestinal Gastrointestinal: absent: As Per HPI, Abdominal Pain, Belching, Bloating, Change in Bowel Habits, Change in Stool Character, Coffee Ground Emesis, Constipation, Cramping, Diarrhea, Dyspepsia, Dysphagia, Early Satiety, Excessive Flatus, Fecal Incontinence, Heartburn, Hematemesis, Hematochezia, Loose Stools, Melena, Nausea, Odynophagia, Temesmus, Vomiting, Other - Genitourinary Genitourinary: As Per HPI - Musculoskeletal Musculoskeletal: As Per HPI - Integumentary Integumentary: As Per HPI - Neurological Neurological: As Per HPI - Psychiatric Psychiatric: absent: As Per HPI, Abnormal Sleep Pattern, Anhedonia, Anxiety, Auditory Hallucinations, Behavioral Changes, Change in Appetite, Change in Libido, Confusion, Depression, Difficulty Concentrating, Hallucinations, Homicidal Ideation, Hopelessness, Irritability, Memory Loss, Mood Swings, Panic Attacks, Paranoia, Suicidal Ideation, Visual Hallucinations, Tactile Hallucinations, Other - Endocrine Endocrine: absent: As Per HPI, Change in Body Appearance, Change in Libido, Cold Intolorance, Deepening of Voice, Excessive Sweating, Fatigue, Flushing, Heat Intolorance, Increase in Ring/Shoe/Hat Size, Palpitations, Polydipsia, Polyphagia, Polyuria, Other - Hematologic/Lymphatic Hematologic: absent: As Per HPI, Easy Bleeding, Easy Bruising, Lymphadenopathy, Other Past Patient History - Past Medical History & Family History Past Medical History?: Yes - Past Social History Smoking Status: Current Some Days Smoker - CARDIAC Hx Hypercholesterolemia: Yes Hx Hypertension: Yes - PULMONARY Hx Respiratory Disorders: No - NEUROLOGICAL Hx Dementia: Yes - HEENT Hx HEENT Problems: Yes - RENAL Hx Chronic Kidney Disease: No - ENDOCRINE/METABOLIC Hx Endocrine Disorders: Yes - HEMATOLOGICAL/ONCOLOGICAL Hx Human Immunodeficiency Virus (HIV): No - INTEGUMENTARY Hx Dermatological Problems: No - MUSCULOSKELETAL/RHEUMATOLOGICAL Hx Arthritis: Yes - GASTROINTESTINAL Hx Gastrointestinal Disorders: No - GENITOURINARY/GYNECOLOGICAL Hx Genitourinary Disorders: No - PSYCHIATRIC Hx Psychophysiologic Disorder: No - SURGICAL HISTORY Hx Surgeries: Yes Hx Amputation: Yes (Left BKA, Right AKA) - ANESTHESIA Hx Anesthesia: Yes Hx Anesthesia Reactions: No Hx Malignant Hyperthermia: No Meds Allergies/Adverse Reactions: Allergies Allergy/AdvReac Type Severity Reaction Status Date / Time No Known Allergies Allergy Verified 01/30/17 17:06 - Medications Medications: Current Medications Alprazolam (Xanax) 0.25 mg PO TID PRN PRN Reason: Anxiety Stop: 02/07/17 06:55 Last Admin: 02/02/17 21:41 Dose: 0.25 mg Dextrose (Glutose 15) 0 gm PO ONCE PRN; Protocol PRN Reason: Hypoglycemia Protocol Dextrose (Dextrose 50% Inj) 0 ml IV STAT PRN; Protocol PRN Reason: Hyglycemia Protocol Enoxaparin Sodium (Lovenox) 40 mg SC DAILY [facility] PRN Reason: Protocol Fluocinonide (Lidex 0.05% Cream) 1 applic TOP BID [facility] Last Admin: 02/03/17 08:54 Dose: 1 applic Glucagon (Glucagen Diagnostic Kit) 0 mg IM STAT PRN; Protocol PRN Reason: Hypoglycemia Protocol HCTZ/Losartan Potassium (Hyzaar 12.5 Mg-50 Mg) 1 tab PO DAILY [facility] Last Admin: 02/03/17 08:55 Dose: 1 tab Home Med (Azelastine Hcl [Azelastine Hcl]) 1 spray KAYKAY BID PRN PRN Reason: Allergy symptoms Last Admin: 02/01/17 16:14 Dose: 1 spray Meropenem 1 gm/ Sodium (Chloride) 100 mls @ 100 mls/hr IVPB Q8@0500,1300,2100 [facility] Insulin Human Regular (Humulin R) 0 units SC ACHS [facility] PRN Reason: Protocol Last Admin: 02/03/17 06:58 Dose: Not Given Memantine (Namenda) 5 mg PO BID [facility] Last Admin: 02/03/17 08:54 Dose: 5 mg Ondansetron HCl (Zofran Inj) 4 mg IVP Q8 PRN PRN Reason: Nausea/Vomiting Pravastatin Sodium (Pravachol) 40 mg PO HS [facility] Last Admin: 02/02/17 22:09 Dose: 40 mg Physical Exam - Constitutional Appears: Non-toxic, Cachectic, Chronically Ill - Head Exam Head Exam: ATRAUMATIC, NORMAL INSPECTION, NORMOCEPHALIC - Eye Exam Eye Exam: PERRL. absent: Scleral icterus - ENT Exam ENT Exam: Mucous Membranes Dry, Normal External Ear Exam, Normal Oropharynx - Neck Exam Neck exam: Negative for: Lymphadenopathy, Thyromegaly - Respiratory Exam Respiratory Exam: Decreased Breath Sounds, Rhonchi - Cardiovascular Exam Cardiovascular Exam: REGULAR RHYTHM, +S1, +S2 - GI/Abdominal Exam GI & Abdominal Exam: Diminished Bowel Sounds, Soft. absent: Tenderness - Rectal Exam Rectal Exam: Deferred - Extremities Exam Extremities exam: Negative for: pedal edema, pedal pulses present Additional comments: left bka right aka - Back Exam Back exam: absent: CVA tenderness (L), CVA tenderness (R) - Neurological Exam Neurological exam: Alert, CN II-XII Intact, Oriented x3, Reflexes Normal - Psychiatric Exam Psychiatric exam: Depressed - Skin Skin Exam: Dry Results - Vital Signs Recent Vital Signs: Last Vital Signs Temp 98.6 F 02/03/17 08:29 Pulse 74 02/03/17 08:29 Resp 20 02/03/17 08:29 BP 171/66 H 02/03/17 08:29 Pulse Ox 98 02/03/17 08:29 - Labs Result Diagrams: 02/03/17 06:00 02/03/17 06:00 Labs: Laboratory Results - last 24 hr 02/02/17 02/02/17 02/02/17 11:05 17:18 22:34 WBC RBC Hgb Hct MCV MCH MCHC RDW Plt Count Sodium Potassium Chloride Carbon Dioxide Anion Gap BUN Creatinine Est GFR ( Amer) Est GFR (Non-Af Amer) POC Glucose (mg/dL) 158 H 173 H 181 H Random Glucose Calcium Total Bilirubin AST ALT Alkaline Phosphatase Total Protein Albumin Globulin Albumin/Globulin Ratio Urine Color Urine Clarity Urine pH Ur Specific [place] Urine Protein Urine Glucose (UA) Urine Ketones Urine Blood Urine Nitrate Urine Bilirubin Urine Urobilinogen Ur Leukocyte Esterase Urine RBC (Auto) Urine Microscopic WBC Ur Squamous Epith Cells Urine Bacteria Hyaline Casts 02/03/17 02/03/17 02/03/17 00:30 06:00 06:31 WBC 10.6 RBC 4.37 L Hgb 13.0 Hct 39.5 MCV 90.3 MCH 29.8 MCHC 33.0 RDW 12.5 Plt Count 249 Sodium 141 Potassium 3.6 Chloride 100 Carbon Dioxide 28 Anion Gap 17 BUN 11 Creatinine 0.7 L Est GFR ( Amer) > 60 Est GFR (Non-Af Amer) > 60 POC Glucose (mg/dL) 132 H Random Glucose 129 H Calcium 9.5 Total Bilirubin 0.4 AST 27 ALT 30 Alkaline Phosphatase 170 H Total Protein 7.4 Albumin 3.8 Globulin 3.6 Albumin/Globulin Ratio 1.1 Urine Color Yellow Urine Clarity Slighty-cloudy Urine pH 7.0 Ur Specific [place] 1.011 Urine Protein 30 Urine Glucose (UA) Neg Urine Ketones Negative Urine Blood Small Urine Nitrate Negative Urine Bilirubin Negative Urine Urobilinogen 0.2-1.0 Ur Leukocyte Esterase Large Urine RBC (Auto) 9 H Urine Microscopic WBC 43 H Ur Squamous Epith Cells < 1 Urine Bacteria Rare Hyaline Casts 0-2 Assessment & Plan (1) Abdominal pain Status: Acute (2) First degree atrioventricular block Status: Acute (3) SIRS (systemic inflammatory response syndrome) Status: Removed (4) UTI (urinary tract infection) Status: Removed (5) Dementia Status: Acute (6) Infection due to ESBL-producing Escherichia coli Status: Acute - Assessment and Plan (Free Text) Assessment: cont merrem for 14 days consider gu eval
--- NOTE | 2017-02-03 11:03 | PN ---
DATE: 02/03/2017 The patient seen and examined. Interim events noted. The patient remains in regular medical floor. The patient is awake, responsive, feels okay. Denies any urinary complaints, any chest pain, no maria eugenia rtness of breath. PHYSICAL EXAMINATION: GENERAL: The patient is in no acute distress. VITAL SIGNS: Stable. HEART: S1, S2 normal, regular. LUNGS: Good bilateral air exchange. ABDOMEN: Soft, nontender, no organomegaly bowel sounds are present. EXTREMITIES: The patient is status post bilateral amputations. No acute complication. CENTRAL NERVOUS SYSTEM: Essentially unchanged. If anything, patient is more awake . DIAGNOSTIC DATA: Available diagnostic data reviewed. Overall, patient's general medical condition is stable and improved. PLAN: As ordered. Jean Pierre Antunez MD cc: [phone] TT: 02/03/2017 11:02:16 Confirmation # [id number] Dictation # [id number] samanta
[2017-02-03] MEDS: Meropenem 1 GM in Sodium Chloride 0.9% 100 ML IVPB SCH ×2 (12:29→21:21)
[2017-02-03] MEDS: Pravastatin Sodium 40 MG TAB PO SCH (21:22)
[2017-02-04] MEDS: Meropenem 1 GM in Sodium Chloride 0.9% 100 ML IVPB SCH ×2 (05:05→12:41)
[2017-02-04] MEDS: Insulin Regular 100 units/ml SC SCH ×2 (06:43→12:41)
[2017-02-04] MEDS ORDERED: Enoxaparin 40 mg Syringe SC SCH (09:00)
[2017-02-04] MEDS ORDERED: HCTZ/Losartan 12.5/50 Tab PO SCH (09:00)
--- NOTE | 2017-02-04 09:16 | PN ---
DATE: 02/04/2017 The patient seen and examined. Interim events noted. The patient with sepsis from resistant urinary tract infection and also with multiple decubitus present on admission as well as . The patient is awake, responsive, feels okay. No specific complaint. No chest pain, no shortness of breath. E maricel, had complaints of back pain to nurses, which now has resolved. PHYSICAL EXAMINATION: GENERAL: The patient is in no acute distress. VITAL SIGNS: Stable. HEART: S1, S2 normal, regular. LUNGS: Good bilateral air exchange. ABDOMEN: Soft, nontender. EXTREMITIES: The patient is status post bilateral amputation. CENTRAL NERVOUS SYSTEM: Essentially unchanged. DIAGNOSTIC DATA: Available reviewed. Overall, patient's general medical condition is stable and improving. PLAN: As ordered. Jean Pierre Antunez MD cc: [phone] TT: 02/04/2017 09:15:10 Confirmation # [id number] Dictation # [id number] en
--- NOTE | 2017-02-04 11:05 | US ---
HISTORY: ESBL + urine COMPARISON: 01/30/2017. CT abdomen and pelvis. TECHNIQUE: Sonographic evaluation of the retroperitoneum. FINDINGS: RIGHT KIDNEY:: Measures 10.8 x 5.9. Ptotic luu right kidney.Cm. Normal echogenicity. No calculus, mass, or hydronephrosis. LEFT KIDNEY:: Measures 11.6 x 4.3cm. Normal echogenicity. No calculus, mass, or hydronephrosis. Incidental finding(s): Simple cyst lower pole 1 x 1.1 cm. Finding confirmed recent CT scan. OTHER FINDINGS: None . IMPRESSION: No acute findings related to/accounting for the clinical presentation.
--- NOTE | 2017-02-04 11:27 | CP.PCM.PCO ---
Physician Communication Note - Physician Communication Note Physician Communication Note: Per Lisa Calhoun x 14 days total. Pt may complete IV abx in TCU
[2017-02-04 16:59] VITALS: BP 169/71; PULSE 70; TEMP 97.5; O2SAT 95
== END 2017-02-04 17:05 | DRG 872 ==
LOC: H.ER 17:01 → H.EROBSV 17:58 → OBSVTOIN 23:51 → H.ERHOLD 23:54 → H.MEDSURG1 01-31 02:15
PROVIDERS: ADMIT Internal Medicine; ATTEND Internal Medicine
DX: A41.9 Sepsis, unspecified organism (principal); N39.0 Urinary tract infection, site not specified; E11.65 Type 2 diabetes mellitus with hyperglycemia; I44.1 Atrioventricular block, second degree; F03.90 Unspecified dementia, unspecified severity, without behavioral disturbance, psychotic disturbance, mood disturbance, and anxiety; I48.91 Unspecified atrial fibrillation; L89.899 Pressure ulcer of other site, unspecified stage; B96.20 Unspecified Escherichia coli [E. coli] as the cause of diseases classified elsewhere; I10 Essential (primary) hypertension; E78.00 Pure hypercholesterolemia, unspecified; I73.9 Peripheral vascular disease, unspecified; M19.90 Unspecified osteoarthritis, unspecified site; H40.9 Unspecified glaucoma; Z89.611 Acquired absence of right leg above knee; Z89.512 Acquired absence of left leg below knee; Z87.891 Personal history of nicotine dependence; Z87.440 Personal history of urinary (tract) infections

== ENCOUNTER 2017-02-04 12:58 | Inpatient (IN) | payer OTHER, MEDICAID ==
[2017-02-04 16:01] VITALS: BMI 25.8
[2017-02-04] MEDS ORDERED: HCTZ/Losartan 12.5/50 Tab PO PRN (16:07)
[2017-02-04] MEDS ORDERED: AZELASTINE HCL NAS PRN (16:07)
[2017-02-04] MEDS ORDERED: Glucagon Recombinant 1 mg Inj IM PRN (16:08)
[2017-02-04] MEDS ORDERED: Dextrose 50% SYRINGE Inj (50 ml) IV PRN (16:08)
[2017-02-04 16:50] VITALS: RESP 20
[2017-02-04] MEDS ORDERED: Patient's Own Med (Meropenem [Merrem Iv] 1 GM) IV SCH (17:00)
[2017-02-04] MEDS: Meropenem 1 GM in Sodium Chloride 0.9% 100 ML IVPB SCH (17:25)
[2017-02-04] MEDS: Insulin Regular 100 units/ml SC SCH ×2 (17:25→21:19)
[2017-02-04] MEDS: Pravastatin Sodium 40 MG TAB PO SCH (21:21)
[2017-02-05] MEDS: Meropenem 1 GM in Sodium Chloride 0.9% 100 ML IVPB SCH ×3 (00:14→17:23)
[2017-02-05] MEDS: Insulin Regular 100 units/ml SC SCH ×4 (06:45→21:57)
[2017-02-05 07:45] LABS: ALKALINE PHOSPHATASE 169 U/L (38-126); ALT/SGPT 52 U/L (21-72); AST/SGOT 53 U/L (17-59); BILIRUBIN,TOTAL 0.5 mg/dl (0.2-1.3); BLOOD UREA NITROGEN 11 mg/dl (9-20); CALCIUM 9.8 mg/dL (8.4-10.2); CARBON DIOXIDE 28 mmol/L (22-30); CHLORIDE 99 mmol/L (98-107); GFR AFRICAN-AMERICAN > 60; GLUCOSE,RANDOM 130 mg/dL (75-110); POTASSIUM 4.7 MMOL/L (3.6-5.0); SODIUM 136 mmol/l (132-148); TOTAL PROTEIN 7.6 G/DL (6.3-8.2)
[2017-02-05 07:55] LABS: HEMATOCRIT 40.8 % (35.0-51.0); MEAN CELL VOLUME 90.1 fl (80.0-94.0); MEAN CORPUSCULAR HEMOGLOBIN 29.8 pg (27.0-31.0); MEAN CORPUSCULAR HGB CONC 33.1 g/dL (33.0-37.0); RED CELL DISTRIBUTION WIDTH 12.4 % (11.5-14.5); WHITE BLOOD COUNT 11.2 K/uL (4.8-10.8)
[2017-02-05] MEDS: Enoxaparin 40 mg Syringe SC SCH (09:32)
[2017-02-05] MEDS: HCTZ/Losartan 12.5/50 Tab PO SCH (09:34)
--- NOTE | 2017-02-05 14:34 | HP ---
CHIEF COMPLAINT: The patient was sent from medical floor for completion of treatment. 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 After stabilizing, patient was found to have multidrug resistant UTI and was started on IV antibiotic according to infectious disease consultatio n and patient was transferred to transitional care unit for completion of treatment. The patient is advanced dementia and is a poor historian. REVIEW OF SYSTEMS: Negative for headache, dizziness, syncope, loss of consciousness, chest pain, maria eugenia rtness of breath, nausea, vomiting, diarrhea, constipation, any new joint or extremity pain. Review of systems of all other organ systems is unremarkable. PAST MEDICAL HISTORY: Significant for diabetes, hypertension, peripheral vascular disease, elevated cholesterol and advanced dementia. PAST SURGICAL HISTORY: Remarkable for bilateral amputation. PERSONAL HISTORY: The patient is nonsmoker, nondrinker, no substance abuse. MEDICATIONS: The patient is on multiple medications, which is as per reconciliation sheet, which was reviewed in order. ALLERGIES: The patient is not allergic to any medication. FAMILY HISTORY: Noncontributory. PHYSICAL EXAMINATION: GENERAL: Well-built, well-nourished elderly man with bilateral lower extremity amputation in no acut e distress. VITAL SIGNS: Temperature 97.5, pulse 83, respiration 20, blood pressure ____/50, saturation 98%. HEENT: Pupils reacting to light. No JVD, no thyromegaly, no lymphadenopathy, no nystagmus. Normoce phalic, atraumatic skull. HEART: S1, S2 normal, regular. No significant murmur, gallop or rub is heard. LUNGS: Shows good bilateral air entry. No rales or rhonchi. ABDOMEN: Soft, nontender, no organomegaly, no fluid. Bowel sounds are present. No suprapubic tende rness. EXTREMITIES: The patient is status post bilateral amputation. CENTRAL NERVOUS SYSTEM: Essentially unchanged. DIAGNOSTIC DATA: WBC 11.2, hemoglobin 13.5, hematocrit 40.8, platelets 273. Sodium 136, potassium 4 .7, chloride 99, bicarbonate 25, BUN 11, creatinine 0.6. SMA-12 is unremarkable. ADMITTING IMPRESSION: Urinary tract infection, hypertension, diabetes type 2 with hyperglycemia, matthew vated cholesterol, peripheral vascular disease, status post amputation. PLAN: As ordered. Case and plan discussed with patient's family. Jean Pierre Antunez MD cc: [id number] TT: 02/05/2017 14:33:41 raymond
[2017-02-05] MEDS: Oxycodone/Acetaminophen 5/325 mg Tab PO PRN (20:44)
[2017-02-05] MEDS: Pravastatin Sodium 40 MG TAB PO SCH (21:57)
[2017-02-06] MEDS: Meropenem 1 GM in Sodium Chloride 0.9% 100 ML IVPB SCH ×3 (00:57→16:25)
[2017-02-06] MEDS: Insulin Regular 100 units/ml SC SCH ×3 (06:53→16:25)
[2017-02-06] MEDS: HCTZ/Losartan 12.5/50 Tab PO SCH (09:02)
[2017-02-06] MEDS: Enoxaparin 40 mg Syringe SC SCH (09:03)
[2017-02-06] MEDS: Oxycodone/Acetaminophen 5/325 mg Tab PO PRN ×2 (09:53→22:10)
--- NOTE | 2017-02-06 10:09 | PN ---
DATE: 02/06/2017 The patient seen and examined. Interim events noted. The patient remains in transitional care unit on IV antibiotics. The patient feels okay. No specific complaint of chest pain or shortness of ines th, although patient is not a reliable historian due to his advanced dementia. PHYSICAL EXAMINATION: GENERAL: The patient is in no acute distress. VITAL SIGNS: Stable. HEART: S1, S2 normal, regular. LUNGS: Good bilateral air exchange. ABDOMEN: Soft, nontender. EXTREMITIES: The patient is status post bilateral amputation. CENTRAL NERVOUS SYSTEM: Essentially unchanged. DIAGNOSTIC DATA: Available reviewed. Overall, patient's general medical condition is stable. PLAN: As ordered. Jean Pierre Antunez MD cc: [id number] TT: 02/06/2017 10:09:16 Confirmation # [id number] Dictation # [id number] en
[2017-02-06] MEDS: Pravastatin Sodium 40 MG TAB PO SCH (23:45)
[2017-02-07] MEDS: Insulin Regular 100 units/ml SC SCH ×5 (01:03→21:23)
[2017-02-07] MEDS: Meropenem 1 GM in Sodium Chloride 0.9% 100 ML IVPB SCH ×3 (03:17→17:17)
--- NOTE | 2017-02-07 08:05 | PN ---
DATE: 02/07/2017 The patient seen and examined. Interim events noted. The patient remains in transitional care unit. Awake, responsive, denies any specific medical complaint. No chest pain or shortness of breath. PHYSICAL EXAMINATION: GENERAL: The patient is in no acute distress. VITAL SIGNS: Stable. Rest of exam remains Essentially unchanged. DIAGNOSTIC DATA: Available diagnostic data reviewed. Overall, patient's general medical condition is stable. PLAN: As ordered. Jean Pierre Antunez MD cc: [id number] TT: 02/07/2017 08:05:02 Confirmation # [id number] Dictation # [id number] raymond
[2017-02-07] MEDS: Enoxaparin 40 mg Syringe SC SCH (09:04)
[2017-02-07] MEDS: HCTZ/Losartan 12.5/50 Tab PO SCH (09:05)
[2017-02-07] MEDS: Pravastatin Sodium 40 MG TAB PO SCH (21:10)
[2017-02-08] MEDS: Meropenem 1 GM in Sodium Chloride 0.9% 100 ML IVPB SCH ×3 (00:40→17:03)
--- NOTE | 2017-02-08 08:04 | PN ---
DATE: 02/08/2017 The patient seen and examined. Interim events noted. The patient remains in transitional care unit, on IV antibiotic. The patient feels okay. No specific complaint. No chest pain or shortness of br eath. PHYSICAL EXAMINATION: GENERAL: The patient is in no acute distress. VITAL SIGNS: Stable. HEART: S1, S2 normal, regular. LUNGS: Good bilateral air entry. ABDOMEN: Soft, nontender. EXTREMITIES: No edema, no calf swelling, no tenderness, no acute ischemia. The patient is status po st bilateral amputation. CENTRAL NERVOUS SYSTEM: Essentially unchanged. DIAGNOSTIC DATA: Available reviewed. Overall, patient's general medical condition is stable. PLAN: As ordered. Jean Pierre Antunez MD cc: [id number] TT: 02/08/2017 08:02:58 Confirmation # [id number] Dictation # [id number] en
[2017-02-08] MEDS: Insulin Regular 100 units/ml SC SCH ×4 (08:33→21:52)
[2017-02-08] MEDS: HCTZ/Losartan 12.5/50 Tab PO SCH (08:34)
[2017-02-08] MEDS: Enoxaparin 40 mg Syringe SC SCH (08:35)
[2017-02-08] MEDS: Oxycodone/Acetaminophen 5/325 mg Tab PO PRN (11:56)
[2017-02-08] MEDS: Pravastatin Sodium 40 MG TAB PO SCH (21:45)
[2017-02-09] MEDS: Meropenem 1 GM in Sodium Chloride 0.9% 100 ML IVPB SCH ×3 (01:08→16:48)
[2017-02-09] MEDS: Insulin Regular 100 units/ml SC SCH ×4 (06:37→21:29)
[2017-02-09 07:20] LABS: HEMATOCRIT 41.6 % (35.0-51.0)
[2017-02-09 07:36] LABS: MEAN CELL VOLUME 89.9 fl (80.0-94.0); MEAN CORPUSCULAR HEMOGLOBIN 29.3 pg (27.0-31.0); MEAN CORPUSCULAR HGB CONC 32.6 g/dL (33.0-37.0); RED CELL DISTRIBUTION WIDTH 12.8 % (11.5-14.5); WHITE BLOOD COUNT 13.2 K/uL (4.8-10.8)
[2017-02-09 07:57] LABS: ALB/GLOB RATIO 1.1 (1.0-2.1); ALKALINE PHOSPHATASE 139 U/L (38-126); ALT/SGPT 42 U/L (21-72); AST/SGOT 30 U/L (17-59); BILIRUBIN,TOTAL 0.7 mg/dl (0.2-1.3); BLOOD UREA NITROGEN 16 mg/dl (9-20); CALCIUM 9.5 mg/dL (8.4-10.2); CARBON DIOXIDE 29 mmol/L (22-30); CHLORIDE 97 mmol/L (98-107); GFR AFRICAN-AMERICAN > 60; GLUCOSE,RANDOM 126 mg/dL (75-110); POTASSIUM 4.5 MMOL/L (3.6-5.0); SODIUM 139 mmol/l (132-148); TOTAL PROTEIN 7.2 G/DL (6.3-8.2)
[2017-02-09] MEDS: Enoxaparin 40 mg Syringe SC SCH (08:36)
[2017-02-09] MEDS: HCTZ/Losartan 12.5/50 Tab PO SCH (08:36)
--- NOTE | 2017-02-09 10:07 | PN ---
DATE: 02/09/2017 The patient seen and examined. Interim events noted. The patient remains in transitional care unit on IV antibiotic. The patient feels okay. No specific complaint. No chest pain, no shortness of br eath. No abdominal pain, no urinary symptoms. PHYSICAL EXAMINATION: GENERAL: The patient is in no acute distress. VITAL SIGNS: Stable. Physical exam is essentially unchanged. DIAGNOSTIC DATA: Available reviewed. Overall, patient's general medical condition is improving. PLAN: As ordered. Jean Pierre Antunez MD cc: [id number] TT: 02/09/2017 10:06:19 Confirmation # [id number] Dictation # [id number] en
[2017-02-09] MEDS: Oxycodone/Acetaminophen 5/325 mg Tab PO PRN (20:22)
[2017-02-09] MEDS: Pravastatin Sodium 40 MG TAB PO SCH (21:11)
[2017-02-10] MEDS: Meropenem 1 GM in Sodium Chloride 0.9% 100 ML IVPB SCH ×3 (00:14→17:09)
[2017-02-10] MEDS: Insulin Regular 100 units/ml SC SCH ×4 (06:35→21:15)
[2017-02-10] MEDS: Enoxaparin 40 mg Syringe SC SCH (09:09)
[2017-02-10] MEDS: HCTZ/Losartan 12.5/50 Tab PO SCH (09:10)
--- NOTE | 2017-02-10 10:37 | PN ---
DATE: 02/10/2017 The patient seen and examined. Interim events noted. The patient remains in transitional care unit. Awake, responsive, conversant. Denies any specific medical complaints. PHYSICAL EXAMINATION: GENERAL: The patient is in no acute distress. VITAL SIGNS: Stable. HEART: S1, S2 normal, regular. LUNGS: Good bilateral air entry. ABDOMEN: Soft, nontender. EXTREMITIES: No edema, no calf swelling. The patient is status post bilateral amputation. CENTRAL NERVOUS SYSTEM: Essentially unchanged. DIAGNOSTIC DATA: Available diagnostic data reviewed. Overall, patient's general medical condition is improving, taking antibiotic for his urinary tract in fection. PLAN: As ordered. Jean Pierre Antunez MD cc: [id number] TT: 02/10/2017 10:36:38 Confirmation # [id number] Dictation # [id number] ryan
[2017-02-10] MEDS: Pravastatin Sodium 40 MG TAB PO SCH (21:16)
[2017-02-11] MEDS: Meropenem 1 GM in Sodium Chloride 0.9% 100 ML IVPB SCH ×3 (01:47→17:27)
[2017-02-11] MEDS: Insulin Regular 100 units/ml SC SCH ×3 (06:38→17:26)
[2017-02-11] MEDS: HCTZ/Losartan 12.5/50 Tab PO SCH (08:33)
[2017-02-11] MEDS: Enoxaparin 40 mg Syringe SC SCH (08:33)
--- NOTE | 2017-02-11 08:51 | PN ---
DATE: 02/10/2017 The patient seen and examined. Interim events noted. The patient remains in transitional care unit on IV antibiotic and tentatively scheduled for discharge on Thursday. The patient feels okay. No sp ecific complaint of chest pain or shortness of breath. PHYSICAL EXAMINATION: GENERAL: The patient is in no acute distress. VITAL SIGNS: Stable. HEART: S1, S2 normal, regular. LUNGS: Good bilateral air exchange. ABDOMEN: Soft, nontender. EXTREMITIES: The patient has bilateral amputations. CENTRAL NERVOUS SYSTEM: Essentially unchanged. DIAGNOSTIC DATA: Available diagnostic data reviewed. Overall, patient's general medical condition is stable. PLAN: As ordered. Jean Pierre Antunez MD cc: [id number] TT: 02/11/2017 08:51:36 Confirmation # [id number] Dictation # [id number] ryan
[2017-02-11] MEDS: Pravastatin Sodium 40 MG TAB PO SCH (22:10)
[2017-02-12] MEDS: Insulin Regular 100 units/ml SC SCH ×5 (01:36→21:40)
[2017-02-12] MEDS: Meropenem 1 GM in Sodium Chloride 0.9% 100 ML IVPB SCH ×3 (01:37→17:05)
[2017-02-12] MEDS: HCTZ/Losartan 12.5/50 Tab PO SCH (08:59)
[2017-02-12] MEDS: Enoxaparin 40 mg Syringe SC SCH (09:00)
--- NOTE | 2017-02-12 09:07 | PN ---
DATE: 02/12/2017 The patient seen and examined. Interim events noted. The patient remains in transitional care unit. The patient feels okay. No specific complaint. No chest pain or shortness of breath. PHYSICAL EXAMINATION: GENERAL: The patient is in no acute distress. VITAL SIGNS: Stable. HEART: S1, S2 normal, regular. LUNGS: Good bilateral air exchange. ABDOMEN: Soft, nontender. EXTREMITIES: The patient is status post amputation. CENTRAL NERVOUS SYSTEM: Unchanged. DIAGNOSTIC DATA: Available diagnostic data reviewed. Overall, patient's general medical condition is stable and improving. PLAN: As ordered. Jean Pierre Antunez MD cc: [id number] TT: 02/12/2017 09:06:58 Confirmation # [id number] Dictation # [id number] ryan
[2017-02-12] MEDS: Pravastatin Sodium 40 MG TAB PO SCH (21:41)
[2017-02-13] MEDS: Meropenem 1 GM in Sodium Chloride 0.9% 100 ML IVPB SCH ×3 (03:52→17:32)
[2017-02-13] MEDS: Insulin Regular 100 units/ml SC SCH ×4 (07:48→22:11)
--- NOTE | 2017-02-13 08:38 | PN ---
DATE: 02/13/2017 The patient seen and examined. Interim events noted. The patient remains in transitional care unit. Feels okay, no specific complaints. No chest pain, no shortness of breath. PHYSICAL EXAMINATION: GENERAL: The patient is in no acute distress. VITAL SIGNS: Stable. HEART: S1, S2 normal, regular. LUNGS: Good bilateral air exchange. ABDOMEN: Soft, nontender. EXTREMITIES: The patient is status post amputations. CENTRAL NERVOUS SYSTEM: Essentially unchanged. The patient is for possible discharge. Case and plan discussed with patient. Jean Pierre Antunez MD cc: [id number] TT: 02/13/2017 08:38:36 Confirmation # [id number] Dictation # [id number] en
[2017-02-13] MEDS: Enoxaparin 40 mg Syringe SC SCH (08:45)
[2017-02-13] MEDS: HCTZ/Losartan 12.5/50 Tab PO SCH (08:46)
[2017-02-13] MEDS ORDERED: Oxycodone/Acetaminophen 5/325 mg Tab PO PRN (15:57)
[2017-02-13] MEDS: Pravastatin Sodium 40 MG TAB PO SCH (21:07)
[2017-02-14] MEDS: Meropenem 1 GM in Sodium Chloride 0.9% 100 ML IVPB SCH ×2 (00:44→09:18)
--- NOTE | 2017-02-14 08:44 | PN ---
DATE: 02/14/2017 The patient seen and examined. Interim events noted. The patient remains in transitional care unit. Feels much better. No chest pain, no shortness of breath. PHYSICAL EXAMINATION: GENERAL: The patient is in no acute distress. VITAL SIGNS: Stable. HEART: S1, S2 normal, regular. LUNGS: Good bilateral air exchange. ABDOMEN: Soft, nontender. EXTREMITIES: The patient is status post amputation. CENTRAL NERVOUS SYSTEM: Essentially unchanged. There is no costovertebral tenderness. The patient' s urinary symptoms have resolved. Overall, the patient is medically stable. Urinary tract infection is treated. The patient is medica lly stable to get discharged home. Case and plan were discussed with the patient and family. Jean Pierre Antunez MD cc: [id number] TT: 02/14/2017 08:44:30 Confirmation # [id number] Dictation # [id number] mn
[2017-02-14 08:47] VITALS: BP 146/52; PULSE 73; TEMP 97.5; O2SAT 98
[2017-02-14] MEDS: HCTZ/Losartan 12.5/50 Tab PO SCH (09:15)
[2017-02-14] MEDS: Enoxaparin 40 mg Syringe SC SCH (09:15)
[2017-02-14] MEDS: Insulin Regular 100 units/ml SC SCH ×2 (09:16→11:35)
== END 2017-02-14 12:20 | disposition home or self-care (01) | DRG 690 ==
LOC: H.TCU 16:03
PROVIDERS: ADMIT Internal Medicine; ATTEND Internal Medicine
PROC: F07L6ZZ Therapeutic Exercise Treatment of Musculoskeletal System - Lower Back / Lower Extremity (ICD-10-PCS; principal; 2017-02-05)
PROC: F08Z4FZ Home Management Treatment using Assistive, Adaptive, Supportive or Protective Equipment (ICD-10-PCS; 2017-02-05)
DX: N39.0 Urinary tract infection, site not specified (principal); E11.51 Type 2 diabetes mellitus with diabetic peripheral angiopathy without gangrene; F03.90 Unspecified dementia, unspecified severity, without behavioral disturbance, psychotic disturbance, mood disturbance, and anxiety; E11.65 Type 2 diabetes mellitus with hyperglycemia; Z89.611 Acquired absence of right leg above knee; I10 Essential (primary) hypertension; I73.9 Peripheral vascular disease, unspecified; Z89.612 Acquired absence of left leg above knee; E78.00 Pure hypercholesterolemia, unspecified